=== PATIENT | female | born 1950 | race Caucasian/White ===

== ENCOUNTER 2018-06-22 12:03 | Inpatient (IN) | payer MEDICARE ==
[~2018-06-22] VITALS: Ht 157.5 cm; Wt 71.4 kg
[2018-06-22 15:00] VITALS: BP 141/72
[2018-06-22] MEDS ORDERED: TOPI25TA7 PO (15:56)
[2018-06-22] MEDS ORDERED: ONDA4TAB12 PO (15:56)
[2018-06-22] MEDS ORDERED: LACT1CAP2 PO (15:56)
[2018-06-22] MEDS ORDERED: PANT20TA2 PO (15:56)
[2018-06-22] MEDS ORDERED: ACET500T68 PO (15:56)
[2018-06-22] MEDS ORDERED: ATEN50TA PO (15:56)
[2018-06-22] MEDS ORDERED: levOFLOXacin PER PHARMACY. MC PRN (16:15)
[2018-06-22] MEDS ORDERED: ONDANSETRON ODT 4 MG TAB.RAPDIS. PO PRN (16:15)
[2018-06-22] MEDS: ATENOLOL 50 MG TABLET. PO SCH (16:23)
[2018-06-22] MEDS ORDERED: PANTOPRAZOLE 40 MG TABLET.DR. PO SCH (16:30)
[2018-06-22] MEDS: VANCOMYCIN PER PHARMACY MC PRN ×2 (16:37→20:17)
[2018-06-22] MEDS: IV NORMAL SALINE 1000ML BAG 1,000 ML IV SCH (16:50)
[2018-06-22] MEDS: ACETAMINOPHEN 500 MG TABLET PO PRN ×2 (16:50→21:08)
[2018-06-22] MEDS: VANCOMYCIN 1 GM in IV NORMAL SALINE 250ML 250 ML IV SCH (16:51)
[2018-06-22 19:00] VITALS: BP 130/78
--- NOTE | 2018-06-22 20:18 | NUR ---
Pharmacy Vancomycin Dosing Note S:Consulted to monitor and dose vancomycin started 06/20/18. O:NATY VALENTINE is a 68 year old F with Sepsis . Height: 5 feet, 2 inches Weight: 72.469359 kg [place] Body Weight: 50.10 Adjusted Body Weight: Dosing Weight: Actual Other Antibiotics: LEVAQUIN LABS: Last BUN: Last Creatinine: Creatinine Clearance: mL/min Last WBC: Last Procalcitonin: Tmax (past 24 hours): 97.9 Microbiology: I/O: Drug Levels: Last level: on at Last dose given 06/22/18 at 0406 Vancomycin Dosing: Loading Dose: 1750 mg x1 Dosing Weight: Actual Target Trough: 15-20 A: VANCOMYCIN 1.75GM IV BOLUS GIVEN AT [facility] 06/20, P: 1. Continue Vancomycin 1000 mg IV q12h 2. Follow up Trough level on 06/23/18 at 0400 3. Pharmacy will continue to monitor, follow and adjust therapy as needed. ZAHRAA SOLANO RPH, 06/22/18 2018
[2018-06-22] MEDS: LACTOBACILLUS RHAMNOSUS GG 1 CAPSULE. PO SCH (21:08)
[2018-06-22] MEDS: TOPIRAMATE 25 MG TABLET. PO SCH (21:08)
[2018-06-22] MEDS: PANTOPRAZOLE IV PUSH 40 MG VIAL. IVP SCH (21:08)
[2018-06-22 23:00] VITALS: BP 123/73
[2018-06-23 03:00] VITALS: BP 139/74
[2018-06-23 05:18] LABS: BLOOD UREA NITROGEN 4 mg/dL (7-20); CREATININE 0.6 mg/dL (0.6-1.0); VANC TR 14.5 mcg/mL (10.0-20.0)
[2018-06-23] MEDS: IV NORMAL SALINE 1000ML BAG 1,000 ML IV SCH ×3 (05:20→16:41)
[2018-06-23] MEDS: ACETAMINOPHEN 500 MG TABLET PO PRN (05:23)
[2018-06-23] MEDS: VANCOMYCIN 1 GM in IV NORMAL SALINE 250ML 250 ML IV SCH (05:27)
[2018-06-23] MEDS: VANCOMYCIN PER PHARMACY MC PRN (05:35)
--- NOTE | 2018-06-23 05:35 | NUR ---
Pharmacy Vancomycin Dosing Note S:Consulted to monitor and dose vancomycin started 06/20/18. O:NATY VALENTINE is a 68 year old F with Sepsis . Height: 5 feet, 2 inches Weight: 72.401079 kg [place] Body Weight: 50.10 Adjusted Body Weight: 58.86 Dosing Weight: Actual Other Antibiotics: LEVAQUIN LABS: Last BUN: 4 Last Creatinine: 0.6 Creatinine Clearance: mL/min Last WBC: Last Procalcitonin: Tmax (past 24 hours): 97.9 Microbiology: I/O: Drug Levels: Last Trough level: 14.5 on 06/23/18 at 0400 Last dose given 06/22/18 at 0406 Vancomycin Dosing: Loading Dose: 1750 mg x1 Dosing Weight: Actual Target Trough: 15-20 A: Based on: TROUGH P: 1. Continue Vancomycin 1000 mg IV q12h 2. Follow up Trough level IF NEEDED 3. Pharmacy will continue to monitor, follow and adjust therapy as needed. DES TAYLOR RPH, 06/23/18 0535 Signed: 06/23/18 at 0535 by DES TAYLOR RPH PHA
[2018-06-23 07:00] VITALS: BP 151/78
[2018-06-23] MEDS: LACTOBACILLUS RHAMNOSUS GG 1 CAPSULE. PO SCH ×2 (08:15→20:27)
[2018-06-23] MEDS: PANTOPRAZOLE IV PUSH 40 MG VIAL. IVP SCH ×2 (08:16→20:27)
[2018-06-23] MEDS: ATENOLOL 50 MG TABLET. PO SCH (08:18)
--- NOTE | 2018-06-23 10:17 | PDOC2 ---
GI CONSULT Reason For Consult: Possible stomach ulcer HPI: HPI: 68 y/o female transferred from [facility], was told she would have an EGD this morning. Reports epigastric to RUQ "aching" for more than 1 week, sometimes w/ radiation to back. Constant, worse w/ movement. Associated w/ indigestion and decreased appetite (though hungry this morning). Has some vomiting on Wednesday and Wednesday, none since and tolerating liquid diet. Says was seen at the ER last week for SOA and lightheadedness, was told related to GERD. Saw PCP last week and was given Sucralfate which she took for a couple days - not sure of efficacy. H/o GERD controlled w/ Prilosec QD - occasional breakthrough reflux and belching , but pain is not a typical symptom for her. Rare dysphagia. No hematemesis. No diarrhea, constipation (though hasn't stooled since Wednesday because hasn't been eating), hematochezia, or melena. Assumes weight loss throughout this. EGD and colonoscopy w/ Dr. Rodriguez at [facility] 5 years ago - recalls no significant findings except maybe a colon polyp. Does have h/o "esophageal ulcer" years ago - at that point started PPI (initially Prevacid) and hasn't stopped since. S/p cholecystectomy ("it was really red"). No pancreas or liver history. Until several months ago, took ibuprofen 800mg QD-BID for arthritis pain. Stopped and hasn't restarted any NSAIDs (though says has a script for one). Labs at [facility] include normal Hgb, BUN, LFTs, amylase, and lipase. CTA chest unrevealing. CT A/P w/o contrast was without acute abnormality but noted small hypodense collection of GB fossa which could represent postop hematoma or seroma and also diverticulosis. Barium swallow noted slight increased fatty stranding surrounding the distal gastric antrum, pylorus, and proximal duodenum. PMH: PMH: HTN, GERD, esophageal ulcer, colon polyp cholecystectomy, hysterectomy FH: Family History: Cancer (breast) Social History: Smoke: No ALCOHOL: none ROS: GEN: Denies fevers, chills, sweats HEENT: Denies blurred vision, sore throat CV: Denies chest pain RESP: Denies shortness of air, cough GI: Per HPI : Denies hematuria, dysuria ENDO: Denies weight changes NEURO: +dizziness MSK: +arthritis SKIN: Denies jaundice, pruritus Vitals: Vitals: Vital Signs Date Time Temp Pulse Resp B/P (MAP) Pulse Ox O2 Delivery O2 Flow Rate FiO2 06/23/18 08:18 54 151/75 06/23/18 08:00 Room Air 06/23/18 07:00 97.6 18 98 97.6 Labs: Labs: Laboratory Tests Test 06/23/18 03:55 Blood Urea Nitrogen 4 mg/dL (7-20) Creatinine 0.6 mg/dL (0.6-1.0) Estimated GFR (Cockcroft-Gault) 100.0 Vancomycin Level Trough 14.5 mcg/mL (10.0-20.0) Vancomycin Last Dose Date 06/22/18 Vancomycin Last Dose Time 1600 Allergies: Coded Allergies: Sulfa (Sulfonamide Antibiotics) (Verified Allergy, Intermediate, RASH , ) Medications: Current Medications Medications (Trade) Dose Ordered Sig/Emmanuel Route PRN Reason Start Time Stop Time Status Last Admin Dose Admin Sodium Chloride 1,000 ml @ 125 mls/hr Q8H IV 06/22/18 17:00 06/23/18 05:20 Atenolol (Tenormin) 50 mg DAILY PO 06/22/18 16:30 06/23/18 08:18 Acetaminophen (Tylenol) 1,000 mg PRN Q6HRS PRN PO MILD PAIN / TEMP 06/22/18 16:15 06/23/18 05:23 Lactobacillus Rhamnosus (Culturelle) 1 cap BID PO 06/22/18 21:00 06/23/18 08:15 Topiramate (Topamax) 25 mg QHS PO 06/22/18 21:00 06/22/18 21:08 Vancomycin HCl (Vanco Per Pharmacy) 1 each PRN DAILY PRN MC SEE COMMENTS 06/22/18 16:15 06/23/18 05:35 Vancomycin HCl 1 gm/Sodium Chloride 250 ml @ 250 mls/hr Q12H IV 06/22/18 16:30 06/23/18 05:27 Levofloxacin/ Dextrose 150 ml @ 100 mls/hr Q24H IV 06/22/18 17:30 3/13/19 16:51 Pantoprazole Sodium (PROTONIX VIAL for IV PUSH) 40 mg BID IVP 06/22/18 21:00 06/23/18 08:16 Vancomycin HCl (Vancomycin Trough Level) 1 each 1X ONCE MC 06/23/18 04:00 06/23/18 04:01 DC 06/23/18 04:00 PE: GEN: NAD HEENT: Atraumatic, PERRL LUNGS: CTAB HEART: RRR ABD: NABS, S/ND, vague epigastric discomfort toward RUQ - seems most bothersome under right ribs EXTREMITY: No edema SKIN: No rashes, no jaundice NEURO/PSYCH: A & O 3 A/P: A/P: Upper abd pain, dyspepsia Vomiting - resolved GERD, remote h/o esophageal ulcer, rare dysphagia - reports normal EGD ~5 years ago, on chronic PPI CRC screen, h/o colon polyp - reports last colonoscopy ~5 years ago Diverticulosis S/p cholecystectomy H/o NSAID use - stopped several months ago Abnormal imaging - slight increased fatty stranding surrounding the distal gastric antrum, pylorus, and proximal duodenum, also possible hematoma or seroma in GB fossa -- Reviewed w/ Dr. Gee - proceed w/ EGD this afternoon - called to GI lab and to RN. Remain NPO, continue IV PPI. Not sure why she's on vanco and Levaquin, defer to primary. KAVITA CARREON Jun 23, 2018 10:17
--- NOTE | 2018-06-23 10:43 | HP ---
ADMIT DATE: 06/22/2018 HISTORY OF PRESENT ILLNESS: The patient is a 68-year-old female patient who was transferred from [facility] where she was admitted originally with recurrent bouts of nausea, vomiting, apparently was initially thought she might be septic and was started on IV antibiotic as the lactic acid was slightly elevated. She was extensively investigated. Her lab work initially showed a white cell count of 11,600, hemoglobin 13.8, hematocrit 41, MCV 88 and platelet count of 269,000. Her urinalysis was unremarkable and essentially negative. Her chemistry showed that her serum sodium was 134, potassium 3.7, chloride 102, bicarbonate 21, anion gap of 11, BUN 7, creatinine 0.5, estimated GFR 123 mL per minute. Her glucose was 106, and her first lactic acid was 2.2, second one was down to 1.2 after receiving IV fluid and also IV antibiotic. She apparently was extensively investigated, and she apparently had a CT scan of the abdomen as well as CT angio of the chest. CT scan of the abdomen showed no acute abnormality of the abdomen and pelvis, normal appendix, status post cholecystectomy. There is small hypodense collection in the gallbladder fossa which represent postoperative hematoma or seroma. She has diverticulosis and status post hysterectomy. She did have a CT angio of the chest, which basically showed no filling defects are seen in the central pulmonary arteries to suggest pulmonary emboli. There is calcific plaquing of the thoracic aorta without evidence of aneurysm or dissection. The heart is within normal limits in size. No mediastinal or hilar adenopathy is evident. No pulmonary mass or consolidation is seen. There is no evidence of pleural fluid, and apparently, there was an addendum with correlation is made with a chest CT obtained on the same date and abdomen and pelvis CT scan obtained on the prior day and stated that there is a slight increased fatty stranding surrounding the distal gastric antrum. Pylorus and proximal duodenum on the chest CT when compared to the abdomen and pelvis CT obtained one day prior; however, this is possibly excluded from the field of view. Given history of epigastric pain of uncertain etiology, the possibility of duodenitis or an occult ulcer may be considered. There are no changes in the previously demonstrated 4.5 cm fluid collection within the gallbladder fossa, status post cholecystectomy, and because of this new finding, a decision was made to transfer her to [facility] to consult the gastroenterology team. PAST MEDICAL HISTORY: Significant for hypertension, previous history of esophageal ulcers, gastroesophageal reflux disease and the patient said that she used to take ibuprofen on a daily basis up until about 4 months ago for her arthritis. PAST SURGICAL HISTORY: Significant for total abdominal hysterectomy, bunionectomy, cholecystectomy and has had also a screening colonoscopy 5 years ago. ALLERGIES: SHE IS ALLERGIC TO SULFA DRUGS. MEDICATIONS: She is currently on following medications: She is on atenolol 50 mg once a day, acetaminophen 1000 mg every 6 hours, topiramate 25 mg at bedtime, lactobacillus acidophilus 1 capsule twice a day, ondansetron 4 mg ODT every 8 hours and Protonix 40 mg daily. She is apparently also on vancomycin and levofloxacin for presumed sepsis, although there is no obvious source of infection. FAMILY HISTORY: She has 3 sisters, are older, one of them has diabetes, second one has breast cancer and the third one is healthy. Her father at age of 90 because of complication of diabetes including end-stage renal disease as he refused to go on hemodialysis. Mother is still alive at the age of 92. She is known to have atrial fibrillation, bilateral total knee arthroplasty and thyroidectomy. SOCIAL HISTORY: She is , has 1 daughter. She never smoked, does not drink alcohol. 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 REVIEW OF SYSTEMS: The patient denied any blurring of vision, cataract, glaucoma or macular degeneration. Denied any earache, tinnitus or sensorineural deafness. Denied any nosebleeds, stuffy nose or postnasal drip. Denied any sore throat, sore tongue, toothache, hoarseness of voice or difficulty swallowing. She actually said that she has intentionally lost weight. Did have some nausea and vomiting last Wednesday and Wednesday, but none overnight. Denied any diarrhea or constipation. Denied any hematemesis, melena, hematochezia. Denied any dysuria, frequency or hematuria. Denied any chest pain, shortness of breath, orthopnea, paroxysmal nocturnal dyspnea. Denied any cough, phlegm or hemoptysis. PHYSICAL EXAMINATION: GENERAL: On arrival to the [facility], she looked well and was clearly in no apparent respiratory distress. No pallor, jaundice, cyanosis or thyromegaly. No jugular venous distention. No lower limb edema. VITAL SIGNS: Her heart rate was 56, temperature was 98.3, respiratory rate was 20, blood [id number], oxygen saturation was 98% on room air. HEAD, EYES, EARS, NOSE AND THROAT: Showed normocephalic, atraumatic. NECK: Supple. HEART: Showed normal first and second heart sounds with no gallop, rub or murmur. CHEST: Clear to auscultation. No crepitation or rhonchi. ABDOMEN: Distended, soft, nontender. No guarding or rigidity. No organomegaly. All hernial orifice intact. Bowel sounds normal. NEUROLOGIC: She was awake, alert, responding appropriately. Cranial nerves intact. She moves extremities without difficulty. She ambulates without assistance or assistive devices. LABORATORY DATA: Her lab work as of yesterday, her white cell count is down to 8500, hemoglobin was 13.5, hematocrit 39.5, MCV 88 and platelet count of 257,000. Her chemistry as of yesterday showed that her serum sodium was 134, potassium 3.7, chloride 102, bicarbonate 21, anion gap of 11, BUN 7, creatinine 0.5, estimated GFR was 123 mL per minute. Her glucose 106, lactic acid was 1.2. Serum calcium was 8.5. CK was 70. Troponin was less than 0.017. Her serum triglycerides 140, total cholesterol 195, LDL was 125, VLDL was 28, and HDL cholesterol was 42, the ratio was 4. Her amylase and lipase were 34 and 167. IMPRESSION: In summary, this is a 68-year-old female patient, presented with nausea, vomiting and epigastric and right upper quadrant pain. Initially she has mild lactic acidosis. The CT scan of the chest showed that there is slight increased fatty stranding surrounding the distal gastric antrum, pylorus and proximal duodenum on chest CT, when compared to the abdomen and pelvic CT obtained one day prior. Given history of epigastric pain of uncertain etiology, the possibility of there might have been an occult ulcer may be considered. The patient is admitted to [facility]. She was continued on IV fluid, continue her Protonix as well as IV antibiotics, and we will consult the Gastroenterology. She will be kept n.p.o. from midnight. JUAN JOSE MACEDO MD DR: ROHITH/bertram JOB#: [id number] / [id number]
[2018-06-23 11:14] VITALS: BP 141/82
[2018-06-23] MEDS ORDERED: IV RINGERS,LACTATED 1000ML 1,000 ML IV SCH (13:24)
[2018-06-23] MEDS ORDERED: fentaNYL PF VIAL 100 MCG/2 ML VIAL IV PRN ×2 (13:30)
[2018-06-23] MEDS ORDERED: MIDAZOLAM HCL/PF 2 MG/2 ML VIAL. IV PRN (13:30)
[2018-06-23] MEDS ORDERED: LIDOCAINE 1% PF 2 ML VIAL. ID PRN (13:30)
[2018-06-23] MEDS ORDERED: LIDOCAINE 2% PF 5 ML VIAL. ONE (13:32)
[2018-06-23] MEDS ORDERED: PROPOFOL 20 ML IV ONE (13:32)
--- NOTE | 2018-06-23 13:52 | PDOC4 ---
Operative Note Operative Note EGD Meds propofol per anesthesia Pre-op dx abd pain s/p kailee/abnl Ct scan Post-op dx non-erosive gastritis Plan advance diet GES and colonoscopy as o/p if symptoms persist GILES ROBLEDO MD Jun 23, 2018 13:52
[2018-06-23 15:00] VITALS: BP 143/71
[2018-06-23] MEDS: HYDROcodone/APAP 5/325MG 1 TAB TABLET PO PRN ×2 (15:13→21:46)
--- NOTE | 2018-06-23 15:21 | NUR ---
SW following for discharge planning. Discussed with RN, pt from [facility], with . Pt had an EGD at 1400 today. SW met with pt to discuss SW referral for Advance Directives. Pt requested SW to return in the morning to complete the paperwork. RN notified. SW will continue to follow.
[2018-06-23 19:00] VITALS: BP 117/70
[2018-06-23] MEDS: TOPIRAMATE 25 MG TABLET. PO SCH (20:27)
[2018-06-23 23:00] VITALS: BP 137/71
[2018-06-24] MEDS: IV NORMAL SALINE 1000ML BAG 1,000 ML IV SCH ×4 (02:17→23:02)
[2018-06-24 03:00] VITALS: BP 147/79
[2018-06-24 04:15] LABS: HEMATOCRIT 39.3 % (36.0-47.0); HEMOGLOBIN 12.9 g/dL (12.0-15.5); RED BLOOD COUNT 4.43 x10^6/uL (3.50-5.40); RED CELL DISTRIBUTION WIDTH 13.6 % (11.5-14.5); WHITE BLOOD COUNT 6.7 x10^3/uL (4.0-11.0)
[2018-06-24 04:45] LABS: ALBUMIN 2.6 g/dL (3.4-5.0); ALBUMIN/GLOBULIN RATIO 0.7 (1.0-1.7); CALCIUM 8.6 mg/dL (8.5-10.1); CREATININE 0.5 mg/dL (0.6-1.0); GFR 123.4; POTASSIUM 3.6 mmol/L (3.5-5.1); TOTAL BILIRUBIN 1.3 mg/dL (0.2-1.0); TOTAL PROTEIN 6.2 g/dL (6.4-8.2)
[2018-06-24 07:00] VITALS: BP 149/71
[2018-06-24 07:15] LABS: CREATININE 0.6 mg/dL (0.6-1.0)
[2018-06-24] MEDS: PANTOPRAZOLE IV PUSH 40 MG VIAL. IVP SCH (08:33)
[2018-06-24] MEDS: LACTOBACILLUS RHAMNOSUS GG 1 CAPSULE. PO SCH ×2 (08:33→20:36)
[2018-06-24] MEDS: ATENOLOL 50 MG TABLET. PO SCH (08:33)
[2018-06-24] MEDS: ACETAMINOPHEN 500 MG TABLET PO PRN (08:41)
[2018-06-24 11:00] VITALS: BP 137/64
--- NOTE | 2018-06-24 11:35 | NUR ---
CLEMENCIA following. Discussed with RN. CLEMENCIA met with pt to complete the DPOA for healthcare paperwork. Pt appointed her Estuardo Jarrett and her daughter Jaqueline. CLEMENCIA Ceja notarized the document. Copy placed on chart, original and other copies given to pt. No further SW needs.
--- NOTE | 2018-06-24 12:25 | RAD ---
Abdominal ultrasound, 06/24/2018: HISTORY: Elevated liver enzymes, right upper quadrant pain The gallbladder is surgically absent. The common hepatic duct at the carina hepatis measures 12 mm. No intrahepatic bile duct dilatation or hepatic mass is evident. The visualized portions of the pancreas are unremarkable. The distal common bile duct near the pancreatic head was not visualized. The spleen is of normal size. There is a mildly prominent extrarenal pelvis on the right. No hydronephrosis or renal mass is evident. There is aortic calcific plaquing without evidence of aneurysm. The inferior vena cava is unremarkable. No free fluid is evident in the abdomen. IMPRESSION: 1. Mild prominence of the common hepatic duct is probably secondary to the postcholecystectomy state. An occult distal common bile duct obstructive process is less likely. 2. The abdominal ultrasound is otherwise unremarkable. Electronically signed by: Jimmy Doran MD (06/24/2018 12:22 PM) [facility]
--- NOTE | 2018-06-24 13:25 | PDOC ---
Subjective: Subjective: Worried about liver enzymes, wonder about US results. Tolerating PO - epigastric pain is better, still some discomfort over to right under ribs. Objective: Vital Signs: Vital Signs Date Time Temp Pulse Resp B/P (MAP) Pulse Ox O2 Delivery O2 Flow Rate FiO2 06/24/18 11:00 97.4 56 14 137/64 (88) 96 Room Air 97.4 Labs: Laboratory Tests Test 06/24/18 03:30 White Blood Count 6.7 x10^3/uL Red Blood Count 4.43 x10^6/uL Hemoglobin 12.9 g/dL Hematocrit 39.3 % Mean Corpuscular Volume 89 fL Mean Corpuscular Hemoglobin 29 pg Mean Corpuscular Hemoglobin Concent 33 g/dL Red Cell Distribution Width 13.6 % Platelet Count 258 x10^3/uL Sodium Level 143 mmol/L Potassium Level 3.6 mmol/L Chloride Level 107 mmol/L Carbon Dioxide Level 23 mmol/L Anion Gap 13 Blood Urea Nitrogen 7 mg/dL Creatinine 0.5 mg/dL Estimated GFR (Cockcroft-Gault) 123.4 BUN/Creatinine Ratio 14 Glucose Level 103 mg/dL Calcium Level 8.6 mg/dL Total Bilirubin 1.3 mg/dL Aspartate Amino Transf (AST/SGOT) 327 U/L Alanine Aminotransferase (ALT/SGPT) 288 U/L Alkaline Phosphatase 227 U/L Total Protein 6.2 g/dL Albumin 2.6 g/dL Albumin/Globulin Ratio 0.7 Lipase 174 U/L Imaging: US 06/24 IMPRESSION: 1. Mild prominence of the common hepatic duct is probably secondary to the postcholecystectomy state. An occult distal common bile duct obstructive process is less likely. 2. The abdominal ultrasound is otherwise unremarkable. EGD 06/23 non-erosive gastritis PE: GEN: NAD LUNGS: CTAB HEART: RRR ABD: less epigastric discomfort, more to RUQ under rib NEURO/PSYCH: A & O 3 A/P: Upper abd pain GERD - on PPI, EGD as above Abnormal LFTs - new, US unrevealing s/p kailee -- ?I think LFTs were normal @ [facility] prior to transfer - I cannot view these in [employer] but will review in paper chart again. ?drug effect - was on Levaquin and vanco (unclear why) Unclear etiology of LFTs - will review w/ Dr. Gee. Hepatitis panel already ordered. KAVITA CARREON Jun 24, 2018 13:25
[2018-06-24 15:00] VITALS: BP 126/68
[2018-06-24] MEDS: HYDROcodone/APAP 5/325MG 1 TAB TABLET PO PRN (18:28)
[2018-06-24 19:00] VITALS: BP 148/75
[2018-06-24] MEDS: TOPIRAMATE 25 MG TABLET. PO SCH (20:36)
[2018-06-24] MEDS: MORPHINE SULFATE 2 MG/ML VIAL. IV PRN (21:12)
[2018-06-24 23:00] VITALS: BP 147/78
--- NOTE | 2018-06-24 23:13 | PN ---
DATE: 06/24/2018 SUBJECTIVE: The patient is a 68-year-old female patient who was transferred from [facility], where she was admitted with epigastric and right upper abdominal pain. Her CT scan showed that she might actually have slightly increased fatty stranding surrounding her distal gastric antrum, pylorus and proximal duodenum and therefore, she was transferred to this hospital for a possibility of an occult ulcer. She was in fact seen by the Gastroenterology team, underwent upper GI endoscopy and apparently, she was found to have nonerosive gastritis and her diet was advanced and the slag production worker recommended gastric emptying study and colonoscopy as an outpatient. Her lab work, however, this morning showed that her liver enzymes are dramatically high. I looked back into her lab work done at [facility] and there was unfortunately no labs done there to compare with. Her total bilirubin, AST, ALT and alkaline phosphatase are all elevated and therefore, I ordered ultrasound to be done at around 02:00 this morning. She was on antibiotics in the form of vancomycin and Levaquin, which could potentially cause this hepatitis. I will await the results of ultrasound and decide on further management accordingly. JUAN JOSE MACEDO MD DR: ROHITH/bertram JOB#: [id number] / [id number]
[2018-06-25] MEDS: HYDROcodone/APAP 5/325MG 1 TAB TABLET PO PRN ×4 (00:17→18:04)
[2018-06-25] MEDS: MORPHINE SULFATE 2 MG/ML VIAL. IV PRN ×7 (00:57→20:46)
[2018-06-25 03:00] VITALS: BP 145/78
[2018-06-25 07:00] VITALS: BP 140/79
[2018-06-25] MEDS: IV NORMAL SALINE 1000ML BAG 1,000 ML IV SCH ×3 (07:04→23:34)
[2018-06-25] MEDS: PANTOPRAZOLE 40 MG TABLET.DR. PO SCH (08:32)
[2018-06-25] MEDS: ATENOLOL 50 MG TABLET. PO SCH (08:32)
[2018-06-25] MEDS: LACTOBACILLUS RHAMNOSUS GG 1 CAPSULE. PO SCH ×2 (08:32→20:47)
[2018-06-25 10:43] VITALS: BP 125/74
--- NOTE | 2018-06-25 13:18 | PN ---
DATE: 06/25/2018 SUBJECTIVE: The patient is sitting, slightly propped up in bed, in no apparent distress. She continued to complain of pain in her epigastric and right upper quadrant. Her pain has worsened last night. Her liver enzymes were noted to be elevated yesterday, and she was seen by the remittance clerk who recommended to do an MRCP that would be scheduled for Wednesday. PHYSICAL EXAMINATION: GENERAL: When I saw her today, she looked well and was clearly in no apparent respiratory distress. No pallor, jaundice, cyanosis or thyromegaly. No jugular venous distension. No lower limb edema. VITAL SIGNS: Her heart rate was 69, blood pressure 125/74, temperature was 98.5, respiratory rate was 18 and oxygen saturation was 97%. HEAD, EYES, EARS, NOSE AND THROAT: Showed normocephalic, atraumatic. NECK: Supple. HEART: Showed normal first and second heart sounds. No gallop, rub or murmur. CHEST: Clear to auscultation. No crepitation or rhonchi. ABDOMEN: Distended, soft, nontender. No guarding or rigidity. No organomegaly. All hernial orifice intact. Bowel sounds normal. NEUROLOGIC: She is awake, alert, responding appropriately. All cranial nerves intact. She moves extremities without difficulty. Her intake and output were incompletely recorded. LABORATORY DATA: Today's labs are still pending at the time of this dictation. However, yesterday her total bilirubin, AST, ALT, alkaline phosphatase are all elevated. However, his serum lipase was normal at 174. ASSESSMENT: 1. Epigastric and right upper quadrant abdominal pain. The CT scan done at [facility] showing increased fatty stranding surrounding her distal gastric antrum, pylorus and proximal jejunum 2. Upper gastrointestinal endoscopy showed only nonerosive gastritis. 3. Liver enzymes noted to have dramatically risen, although unfortunately there are no labs done at [facility] to compare with. She was seen yesterday by the remittance clerk and ordered MRCP without contrast. I did order a hepatitis serology and her hepatitis A IgM, hepatitis B surface antigen, hepatitis B core antigen, hepatitis C are all nonreactive. PLAN: To continue with current plan of management, await the MRCP and follow her liver enzyme. JUAN JOSE MACEDO MD DR: ROHITH/bertram JOB#: [id number] / [id number]
[2018-06-25 13:30] LABS: CALCIUM 8.8 mg/dL (8.5-10.1); CREATININE 0.6 mg/dL (0.6-1.0); POTASSIUM 3.5 mmol/L (3.5-5.1)
[2018-06-25 13:36] LABS: ALBUMIN/GLOBULIN RATIO 0.9 (1.0-1.7); TOTAL BILIRUBIN 3.3 mg/dL (0.2-1.0); TOTAL PROTEIN 6.2 g/dL (6.4-8.2)
--- NOTE | 2018-06-25 14:32 | PDOC ---
Subjective: Subjective: epigastric pain controlled on meds Objective: Vital Signs: Vital Signs Date Time Temp Pulse Resp B/P (MAP) Pulse Ox O2 Delivery O2 Flow Rate FiO2 06/25/18 13:01 20 20 Room Air 06/25/18 10:43 98.5 69 125/74 (91) 98.5 Labs: Laboratory Tests Test 06/25/18 12:40 Sodium Level 139 mmol/L (136-145) Potassium Level 3.5 mmol/L (3.5-5.1) Chloride Level 101 mmol/L (98-107) Carbon Dioxide Level 26 mmol/L (21-32) Anion Gap 12 (6-14) Blood Urea Nitrogen 5 mg/dL (7-20) Creatinine 0.6 mg/dL (0.6-1.0) Estimated GFR (Cockcroft-Gault) 100.0 BUN/Creatinine Ratio 8 (6-20) Glucose Level 188 mg/dL (70-99) Calcium Level 8.8 mg/dL (8.5-10.1) Total Bilirubin 3.3 mg/dL (0.2-1.0) Aspartate Amino Transf (AST/SGOT) 194 U/L (15-37) Alanine Aminotransferase (ALT/SGPT) 373 U/L (14-59) Alkaline Phosphatase 388 U/L (46-116) Total Protein 6.2 g/dL (6.4-8.2) Albumin 3.0 g/dL (3.4-5.0) Albumin/Globulin Ratio 0.9 (1.0-1.7) Lipase 152 U/L (73-393) Physical Exam: Physical Exam: PE: GEN: NAD LUNGS: CTAB HEART: RRR ABD: less epigastric discomfort, more to RUQ under rib NEURO/PSYCH: A & O 3 Assessment & Plan: Assessment : A/P: Upper abd pain GERD - on PPI, EGD as above Abnormal LFTs - new, US unrevealing s/p kailee Plan: 1) Hepatitis panel negative 2) Await MRCP wednesday MICHELE JARA MD Jun 25, 2018 14:32
[2018-06-25 14:56] VITALS: BP 134/76
[2018-06-25 19:00] VITALS: BP 138/85
[2018-06-25] MEDS: ACETAMINOPHEN 500 MG TABLET PO PRN (20:46)
[2018-06-25] MEDS: TOPIRAMATE 25 MG TABLET. PO SCH (20:47)
[2018-06-25] MEDS: oxyCODONE IR 5 MG TABLET PO PRN (20:47)
[2018-06-25 23:00] VITALS: BP 125/75
[2018-06-26] MEDS: MORPHINE SULFATE 2 MG/ML VIAL. IV PRN ×4 (02:27→16:15)
[2018-06-26] MEDS: oxyCODONE IR 5 MG TABLET PO PRN ×4 (02:27→18:20)
[2018-06-26 03:00] VITALS: BP 124/70
[2018-06-26 07:00] VITALS: BP 147/84
[2018-06-26] MEDS: PANTOPRAZOLE 40 MG TABLET.DR. PO SCH (08:22)
[2018-06-26] MEDS: LACTOBACILLUS RHAMNOSUS GG 1 CAPSULE. PO SCH ×2 (08:23→20:34)
[2018-06-26] MEDS: ATENOLOL 50 MG TABLET. PO SCH (08:23)
[2018-06-26] MEDS: IV NORMAL SALINE 1000ML BAG 1,000 ML IV SCH ×2 (08:24→18:09)
[2018-06-26] MEDS ORDERED: fentaNYL PF VIAL 100 MCG/2 ML VIAL IV PRN (10:30)
[2018-06-26 10:47] VITALS: BP 130/78
[2018-06-26 12:34] LABS: ALBUMIN 2.6 g/dL (3.4-5.0); TOTAL BILIRUBIN 5.7 mg/dL (0.2-1.0); TOTAL PROTEIN 6.6 g/dL (6.4-8.2)
[2018-06-26 14:35] VITALS: BP 128/72
--- NOTE | 2018-06-26 14:46 | PDOC ---
Subjective: Subjective: T bili up to 5.7. She denies rash but admits to fever overnight but no abd pain Objective: Vital Signs: Vital Signs Date Time Temp Pulse Resp B/P (MAP) Pulse Ox O2 Delivery O2 Flow Rate FiO2 06/26/18 14:35 97.7 74 18 128/72 (90) 95 Room Air 97.7 Labs: Laboratory Tests Test 06/26/18 11:30 Total Bilirubin 5.7 mg/dL (0.2-1.0) Direct Bilirubin 5.0 mg/dL (0.0-0.2) Aspartate Amino Transf (AST/SGOT) 61 U/L (15-37) Alanine Aminotransferase (ALT/SGPT) 235 U/L (14-59) Alkaline Phosphatase 384 U/L (46-116) Total Protein 6.6 g/dL (6.4-8.2) Albumin 2.6 g/dL (3.4-5.0) Physical Exam: Physical Exam: GEN: Jaundice HEENT: OP clear CV: S1S2 without murmurs, rubs, or gallops RESP: CTAB without wheezing, rhonchi, or crackles ABD: NABS, SNT/ND EXT: No edema NEURO: AAO x 3 Assessment & Plan: Assessment : A/P: Upper abd pain GERD - on PPI, EGD as above Abnormal LFTs - new, US unrevealing s/p kailee Plan: 1) Hepatitis panel negative 2) T bili up to 5.7 3) Await MRCP wednesday MICHELE JARA MD Jun 26, 2018 14:46
[2018-06-26 19:00] VITALS: BP 165/78
[2018-06-26] MEDS: TOPIRAMATE 25 MG TABLET. PO SCH (20:34)
[2018-06-26] MEDS: MORPHINE SULFATE 4 MG/ML VIAL. IV PRN (20:34)
--- NOTE | 2018-06-26 20:57 | PN ---
DATE: 06/26/2018 SUBJECTIVE: The patient is 68 years old female. Patient who was transferred from [facility] because of nausea, vomiting. She underwent upper GI endoscopy that was unrevealing; however, her liver enzymes started to rise. In fact, yesterday, her bilirubin, AST, ALT, alkaline phosphatase all had risen, although her serum lipase remained normal. Her ultrasound was unremarkable and again was unrevealing showing that she has mild prominence of the common hepatic duct, probably secondary to post-cholecystectomy state. An occult distal common bile duct obstructive process is less likely. The abdominal ultrasound was otherwise unremarkable. She was scheduled for MRCP for tomorrow morning. Unfortunately, she continued to complain of severe pain in her epigastric and right upper quadrant. PHYSICAL EXAMINATION: GENERAL: When I examined her today, she looked well, slightly jaundiced, but not cyanosis. No lymphadenopathy, no thyromegaly. No jugular venous distension. No lower limb edema. VITAL SIGNS: Her heart rate was 68, blood pressure was 147/84, temperature was 98.2, respiratory rate was 18 and oxygen saturation was 96%. HEAD, EYES, EARS, NOSE AND THROAT: Normocephalic, atraumatic. NECK: Supple. HEART: Showed normal first and second heart sounds. No gallop, rub or murmur. CHEST: Clear to auscultation. No crepitation or rhonchi. ABDOMEN: Distended, soft with tenderness mostly in the epigastric and right upper quadrant. There is no guarding or rigidity. No organomegaly. All hernial orifices intact. Bowel sounds normal. NEUROLOGIC: She was awake, alert, responding appropriately. All cranial nerves intact. She moves extremities without difficulty. She ambulates without assistance or assistive devices. LABORATORY DATA: As of yesterday, her serum sodium was 139, potassium 3.5, chloride 101, bicarbonate 26, anion gap of 12, BUN 5, creatinine 0.6, estimated GFR was 100. Her glucose was 188, calcium was 8.8. Total bilirubin 3.3. AST and ALT, alkaline phosphatase are all high and rising. Her total protein was 6.2, albumin 3 and serum lipase was 152. ASSESSMENT: Upper abdominal pain for which she underwent upper GI endoscopy that was unrevealing. She has abnormal liver enzymes. The ultrasound was unrevealing. Her hepatitis serology was negative. The patient is scheduled for MRCP tomorrow as her pain is still not well controlled. I increased her morphine to 4 mg IV every 3 hours and if that is not controlling her pain, we might have to switch her to fentanyl in case morphine worsens the pain. JUAN JOSE MACEDO MD DR: ROHITH/bertram JOB#: [id number] / [id number]
[2018-06-26 23:00] VITALS: BP 136/75
[2018-06-27] MEDS: oxyCODONE IR 5 MG TABLET PO PRN ×4 (00:13→21:15)
[2018-06-27] MEDS: diphenhydrAMINE HCL 25 MG CAPSULE PO PRN ×2 (00:13→08:01)
[2018-06-27] MEDS: IV NORMAL SALINE 1000ML BAG 1,000 ML IV SCH ×3 (00:14→17:20)
[2018-06-27 03:00] VITALS: BP 131/69
[2018-06-27] MEDS: MORPHINE SULFATE 4 MG/ML VIAL. IV PRN ×2 (05:36→17:21)
[2018-06-27 07:00] VITALS: BP 163/83
--- NOTE | 2018-06-27 10:21 | PDOC ---
Objective: Vital Signs: Vital Signs Date Time Temp Pulse Resp B/P (MAP) Pulse Ox O2 Delivery O2 Flow Rate FiO2 06/27/18 08:02 Room Air 06/27/18 07:00 98.4 64 16 163/83 (109) 98 98.4 Labs: Laboratory Tests Test 06/26/18 11:30 Total Bilirubin 5.7 mg/dL Direct Bilirubin 5.0 mg/dL Aspartate Amino Transf (AST/SGOT) 61 U/L Alanine Aminotransferase (ALT/SGPT) 235 U/L Alkaline Phosphatase 384 U/L Total Protein 6.6 g/dL Albumin 2.6 g/dL PE: out of room A/P: Upper abd pain - h/o GERD, EGD unrevealing Abnormal LFTs - bili worse (checked 06/26), Hep panel neg, past EBV and CMV -- Await MRCP, monitor labs. Called by RN earlier - asking for diet, gave okay to eat. MRCP results: FINDINGS: Heart is normal in size. No pericardial or pleural effusion. No imaging evidence of hepatic steatosis. The liver is normal in morphology. No abnormal T2 signal is seen. Diffusely dilated intra and extrahepatic biliary ducts are seen. The right and left hepatic ducts, common hepatic duct are patent. Prominent cystic duct remnant is seen. Low attachment of cystic duct is seen. The CBD is dilated measuring 1.4 cm with a round low intensity object/lesion within the CBD just before the ampulla. The main pancreatic duct is not dilated. No pancreatic or peripancreatic edema. Spleen is unenlarged. Adrenal glands demonstrate no nodularity. No hydronephrosis. Status post cholecystectomy. No bowel obstruction. IMPRESSION: Dilated intra and extrahepatic biliary ducts with internal filling defect in the distal segment of the CBD most likely a stone. Further evaluation with ERCP recommended. D/w RN again. Would assume ERCP tomorrow but will review w/ Dr. Gee and put in orders accordingly. Will also return to pt's room later to discuss. KAVITA CARREON Jun 27, 2018 10:21
[2018-06-27] MEDS: PANTOPRAZOLE 40 MG TABLET.DR. PO SCH (10:52)
[2018-06-27] MEDS: LACTOBACILLUS RHAMNOSUS GG 1 CAPSULE. PO SCH ×2 (10:53→21:11)
[2018-06-27] MEDS: ATENOLOL 50 MG TABLET. PO SCH (10:53)
[2018-06-27 11:01] VITALS: BP 140/87
--- NOTE | 2018-06-27 11:10 | RAD ---
Indication: abnormal pain. History of cholecystectomy. TECHNIQUE: Multiplanar multisequence MRI and MRCP of the abdomen without IV contrast with MIP reformats. COMPARISON: Ultrasound from 06/24/2018 FINDINGS: Heart is normal in size. No pericardial or pleural effusion. No imaging evidence of hepatic steatosis. The liver is normal in morphology. No abnormal T2 signal is seen. Diffusely dilated intra and extrahepatic biliary ducts are seen. The right and left hepatic ducts, common hepatic duct are patent. Prominent cystic duct remnant is seen. Low attachment of cystic duct is seen. The CBD is dilated measuring 1.4 cm with a round low intensity object/lesion within the CBD just before the ampulla. The main pancreatic duct is not dilated. No pancreatic or peripancreatic edema. Spleen is unenlarged. Adrenal glands demonstrate no nodularity. No hydronephrosis. Status post cholecystectomy. No bowel obstruction. IMPRESSION: Dilated intra and extrahepatic biliary ducts with internal filling defect in the distal segment of the CBD most likely a stone. Further evaluation with ERCP recommended. Electronically signed by: Cooper Lee DO (06/27/2018 11:08 AM) [facility]
[2018-06-27 15:00] VITALS: BP 156/82
[2018-06-27] MEDS ORDERED: BISACODYL 5 MG TABLET.DR. PO ONE (16:00)
[2018-06-27 19:00] VITALS: BP 154/78
[2018-06-27] MEDS: TOPIRAMATE 25 MG TABLET. PO SCH (21:11)
[2018-06-27] MEDS: POLYETHYLENE GLYCOL 3350 17 GM PACKET. PO SCH (21:11)
--- NOTE | 2018-06-27 21:23 | PN ---
DATE: 06/27/2018 SUBJECTIVE: The patient is resting slightly propped up in bed, in no apparent distress. She continued to complain of pain in her epigastric and right upper quadrant and she is scheduled for MRCP to be done this morning. PHYSICAL EXAMINATION: GENERAL: When I was examining her, she looked well and was clearly in no apparent respiratory distress. No pallor. She is jaundiced, but not cyanosed. No lymphadenopathy, no thyromegaly. No jugular venous distension. No lower limb edema. VITAL SIGNS: Her heart rate was 64, blood pressure 163/83, temperature was 98.4, respiratory rate was 16, and oxygen saturation was 98% on room air. The rest of examination is stable. Her intake was 1214, no output was recorded. LABORATORY DATA: As of yesterday, her bilirubin has risen actually up from 1.3-5.7. This is mostly direct bilirubin getting obstruction. Her alkaline phosphatase, AST, ALT continue to rise. ASSESSMENT: Cholestatic jaundice. Her hepatitis panel was negative. The upper GI endoscopy showed gastroesophageal reflux disease. Her abdominal ultrasound was unrevealing. PLAN: To await the result of the MRCP to decide on further management. JUAN JOSE MACEDO MD DR: ROHITH/bertram JOB#: [id number] / [id number]
[2018-06-27 23:00] VITALS: BP 144/75
[2018-06-28] VITALS (10 sets, daily range): BP systolic 109–147; BP diastolic 61–81
[2018-06-28] MEDS: MORPHINE SULFATE 4 MG/ML VIAL. IV PRN (00:17)
[2018-06-28 05:20] LABS: HEMATOCRIT 35.5 % (36.0-47.0); HEMOGLOBIN 11.9 g/dL (12.0-15.5); RED BLOOD COUNT 3.99 x10^6/uL (3.50-5.40); RED CELL DISTRIBUTION WIDTH 14.7 % (11.5-14.5); WHITE BLOOD COUNT 6.2 x10^3/uL (4.0-11.0)
[2018-06-28] MEDS: IV NORMAL SALINE 1000ML BAG 1,000 ML IV SCH ×3 (05:24→17:52)
[2018-06-28] MEDS: oxyCODONE IR 5 MG TABLET PO PRN ×2 (06:19→10:21)
[2018-06-28] MEDS ORDERED: IV RINGERS,LACTATED 1000ML 1,000 ML IV SCH (07:00)
[2018-06-28] MEDS: PANTOPRAZOLE 40 MG TABLET.DR. PO SCH (07:30)
[2018-06-28 07:54] LABS: ALBUMIN 2.1 g/dL (3.4-5.0); ALBUMIN/GLOBULIN RATIO 0.6 (1.0-1.7); CALCIUM 8.9 mg/dL (8.5-10.1); CREATININE 0.5 mg/dL (0.6-1.0); GFR 123.4; POTASSIUM 4.5 mmol/L (3.5-5.1); TOTAL BILIRUBIN 5.2 mg/dL (0.2-1.0); TOTAL PROTEIN 5.9 g/dL (6.4-8.2)
[2018-06-28] MEDS: POLYETHYLENE GLYCOL 3350 17 GM PACKET. PO SCH ×2 (07:56→21:00)
[2018-06-28] MEDS: ATENOLOL 50 MG TABLET. PO SCH (08:00)
[2018-06-28] MEDS: LACTOBACILLUS RHAMNOSUS GG 1 CAPSULE. PO SCH ×2 (08:00→21:13)
[2018-06-28] MEDS ORDERED: IOHEXOL 300 MG/ML 100ML VIAL. ONE (08:17)
[2018-06-28] MEDS: PIPERACILLIN/TAZOBACTAM 3.375 GM in IV NORMAL SALINE 50ML 50 ML IV SCH ×3 (09:59→23:54)
--- NOTE | 2018-06-28 10:23 | PN ---
DATE: 06/28/2018 SUBJECTIVE: The patient is resting, slightly propped up in bed, in no apparent respiratory distress. She is awake, alert, stated that she did sleep. Her MRCP showed that the patient has dilated intra and extrahepatic biliary ductal internal filling defect in the distal segment of the common bile duct, most likely a stone. Further evaluation with ERCP is recommended. Actually she was kept n.p.o. from midnight last night, and she is scheduled for ERCP today. OBJECTIVE: GENERAL: When I saw her this morning, she looked well and was clearly in no apparent respiratory distress. No pallor, jaundice, cyanosis or thyromegaly. No jugular venous distension. No lower limb edema. VITAL SIGNS: Her heart rate was 75, blood pressure 147/81, temperature was 98.7, respiratory rate was 18 and oxygen saturation was 96% on room air. HEAD, EYES, EARS, NOSE AND THROAT: Showed normocephalic, atraumatic. NECK: Supple. HEART: Showed normal first and second heart sounds with no gallop, rub or murmur. CHEST: Clear to auscultation. No crepitation or rhonchi. ABDOMEN: Distended, soft, nontender. No guarding or rigidity. No organomegaly. All hernial orifice intact. Bowel sounds normal. NEUROLOGIC: She was awake, alert, responding appropriately. All cranial nerves are intact. She moves extremities without difficulty. She ambulates without assistance or assistive devices. Her intake over the last 24 hours was 3400, no output recorded. LABORATORY DATA: Her lab work this morning showed a white cell count of 6200, hemoglobin at 12, hematocrit 36, MCV 89 and platelet count of 293,000. Her chemistry showed a serum sodium 141, potassium 4.5, chloride 103, bicarbonate 29, anion gap of 9, BUN 6, creatinine 0.5, estimated GFR was 123 mL per minute. Her glucose 111, calcium was 8.9. Total bilirubin is 5.2. AST normal. ALT and alkaline phosphatase slightly elevated. Total protein was 5.9, albumin 2.1. So far, all her blood cultures are negative. ASSESSMENT: Upper abdominal pain with abnormal liver enzymes with worsening hyperbilirubinemia. Her hepatic panel was negative. MRCP showed that she has dilated intra and extrahepatic biliary ductal internal filling defect in the distal segment of the common bile duct, most likely a stone. The patient is scheduled for ERCP today. JUAN JOSE MACEDO MD DR: ROHITH/bertram JOB#: [id number] / [id number]
--- NOTE | 2018-06-28 12:14 | NUR ---
SW following. Discussed with RN, pt having an ERCP today. RN advised no SW needs at this time. SW will continue to follow.
[2018-06-28] MEDS ORDERED: SUCCINYLCHOLINE 200 MG/10 ML VIAL. ONE (15:11)
[2018-06-28] MEDS ORDERED: IOHEXOL 350 MG/ML 100 ML VIAL. IV ONE (15:56)
--- NOTE | 2018-06-28 16:04 | PDOC4 ---
Operative Note Operative Note ERCP with sphincterotomy/stone extraction Meds per anesthesia pre-op dx jaundice/abnl MRCp post-op dx choledocholithiasis s/p sphincterotomy/stone extraction Plan liquids over night amylase/lipase/LFTS in am to assess for pancreatitis GILES ROBLEDO MD Jun 28, 2018 16:04
--- NOTE | 2018-06-28 16:26 | RAD ---
Intraoperative fluoroscopic support 06/28/2018 INDICATION: ERCP Discussion: Intraoperative fluoroscopic support was provided during ERCP. 9 static images were submitted to PACS. Diffuse dilatation of the biliary tree is appears to be present. Dilatation of the cystic duct stump is also noted. Filling defects noted in the distal bile duct on final image could represent gas bubbles, or stones. Refer to operative notes for intraoperative findings and procedural details. Fluoroscopy time: 3 minutes, 54 seconds Exposures: 9 IMPRESSION: Intraoperative fluoroscopic support was provided. Electronically signed by: Detsin Blake MD (06/28/2018 4:23 PM) [id number]
[2018-06-28] MEDS: TOPIRAMATE 25 MG TABLET. PO SCH (21:13)
[2018-06-29] MEDS: IV NORMAL SALINE 1000ML BAG 1,000 ML IV SCH ×2 (02:57→08:24)
[2018-06-29 03:00] VITALS: BP 124/64
[2018-06-29 04:25] LABS: HEMATOCRIT 34.8 % (36.0-47.0); HEMOGLOBIN 11.5 g/dL (12.0-15.5); RED BLOOD COUNT 3.9 x10^6/uL (3.50-5.40); RED CELL DISTRIBUTION WIDTH 14.6 % (11.5-14.5); WHITE BLOOD COUNT 4.1 x10^3/uL (4.0-11.0)
[2018-06-29 04:50] LABS: ALBUMIN 2.2 g/dL (3.4-5.0); ALBUMIN/GLOBULIN RATIO 0.6 (1.0-1.7); CALCIUM 8.8 mg/dL (8.5-10.1); CREATININE 0.5 mg/dL (0.6-1.0); GFR 123.4; TOTAL BILIRUBIN 5.4 mg/dL (0.2-1.0); TOTAL PROTEIN 5.8 g/dL (6.4-8.2)
[2018-06-29] MEDS: PIPERACILLIN/TAZOBACTAM 3.375 GM in IV NORMAL SALINE 50ML 50 ML IV SCH ×2 (06:06→11:42)
[2018-06-29 07:00] VITALS: BP 137/76
[2018-06-29] MEDS: LACTOBACILLUS RHAMNOSUS GG 1 CAPSULE. PO SCH (08:22)
[2018-06-29] MEDS: ATENOLOL 50 MG TABLET. PO SCH (08:23)
[2018-06-29] MEDS: PANTOPRAZOLE 40 MG TABLET.DR. PO SCH (08:23)
[2018-06-29] MEDS: POLYETHYLENE GLYCOL 3350 17 GM PACKET. PO SCH (08:24)
--- NOTE | 2018-06-29 09:50 | NUR ---
SW following. Discussed with RN, possibility of pt discharging home with today. No SW needs.
--- NOTE | 2018-06-29 10:53 | PDOC ---
Subjective: Subjective: Feels so much better, no abd pain. Hungry - wants to eat and go home. Stooled - didn't need Miralax today. Objective: Vital Signs: Vital Signs Date Time Temp Pulse Resp B/P (MAP) Pulse Ox O2 Delivery O2 Flow Rate FiO2 06/29/18 08:23 80 137/76 06/29/18 08:00 Room Air 06/29/18 07:00 98.1 17 98 98.1 Labs: Laboratory Tests Test 06/29/18 03:15 White Blood Count 4.1 x10^3/uL Red Blood Count 3.90 x10^6/uL Hemoglobin 11.5 g/dL Hematocrit 34.8 % Mean Corpuscular Volume 89 fL Mean Corpuscular Hemoglobin 30 pg Mean Corpuscular Hemoglobin Concent 33 g/dL Red Cell Distribution Width 14.6 % Platelet Count 311 x10^3/uL Sodium Level 143 mmol/L Potassium Level 3.0 mmol/L Chloride Level 104 mmol/L Carbon Dioxide Level 25 mmol/L Anion Gap 14 Blood Urea Nitrogen 7 mg/dL Creatinine 0.5 mg/dL Estimated GFR (Cockcroft-Gault) 123.4 BUN/Creatinine Ratio 14 Glucose Level 126 mg/dL Calcium Level 8.8 mg/dL Total Bilirubin 5.4 mg/dL Aspartate Amino Transf (AST/SGOT) 38 U/L Alanine Aminotransferase (ALT/SGPT) 98 U/L Alkaline Phosphatase 336 U/L Total Protein 5.8 g/dL Albumin 2.2 g/dL Albumin/Globulin Ratio 0.6 Amylase Level 22 U/L Lipase 92 U/L PE: GEN: NAD LUNGS: CTAB HEART: RRR ABD: NABS, S/ND/NT NEURO/PSYCH: A & O 3 A/P: Choledocholithiasis s/p ERCP w/ sphincterotomy and stone extraction Abd pain - resolved Elevated LFTs -- Reviewed w/ Dr. Gee - okay to ADAT and DC if tolerated. Recheck LFTs w/ PCP next week. KAVITA CARREON Jun 29, 2018 10:53
[2018-06-29 11:00] VITALS: BP 124/78
[2018-06-29] MEDS ORDERED: POTASSIUM CHLORIDE 20 MEQ TABLET.ER. PO SCH (11:30)
[2018-06-29] MEDS: POTASSIUM CHLORIDE 20 MEQ TABLET.ER. PO SCH ×2 (11:42→13:16)
--- NOTE | 2018-06-29 12:08 | DS ---
DATE OF DISCHARGE: 06/29/2018 HOSPITAL COURSE: The patient is a 68-year-old female patient who was transferred from [facility] with epigastric and right upper quadrant pain. There, she has had a CT scan of the abdomen and pelvis, which basically showed that there is slight increased fatty stranding surrounding the distal gastric antrum, pylorus and proximal duodenum with a chest CT when compared to the abdomen and pelvis and therefore possibility of a gastric ulcer is entertained, and therefore the patient was admitted to [facility]. She underwent upper GI endoscopy, which basically showed that she has nonerosive gastritis. Unfortunately, she has not had any liver enzymes tested at [facility]; however, her liver enzyme was noted to be high and she had had an MRCP done, which basically showed that the patient has dilated intra and extrahepatic bile ducts with internal filling defect in the distal segment of the common bile duct, most likely a stone. She underwent ERCP with sphincterotomy and stone retrieval. When I saw her today, she looked well and was clearly in no apparent respiratory distress. She denied any abdominal pain. Denied any nausea, vomiting. She was started on a clear liquid diet and is tolerating it very well. A decision was made to discharge her home to follow with her primary care physician to monitor her lab work. PHYSICAL EXAMINATION: GENERAL: When I saw her, she looked well and was clearly in no apparent respiratory distress. No pallor, jaundice, cyanosis, or thyromegaly. No jugular venous distension. No lymphedema. VITAL SIGNS: Her heart rate was 69, blood pressure 124/76, temperature was 98.1, respiratory rate was 16, and oxygen saturation was 96%. HEAD, EYES, EARS, NOSE AND THROAT: Showed normocephalic, atraumatic. NECK: Supple. HEART: Showed normal first and second heart sounds. No gallop, rub or murmur. CHEST: Clear to auscultation. No crepitation or rhonchi. ABDOMEN: Distended, soft, nontender. No guarding or rigidity. No organomegaly. All hernial orifices intact. Bowel sounds normal. NEUROLOGIC: She is awake, alert, responding appropriately. All cranial nerves intact. She moves extremities without difficulty. She ambulates without assistance or assistive devices. LABORATORY DATA: Showed a white cell count 4100, hemoglobin 11.5, hematocrit 35, MCV 89 and platelet count of 311,000. Her chemistry showed a serum sodium 143, potassium 3, chloride 104, bicarbonate 25, anion gap of 14, BUN 7, creatinine 0.5, estimated GFR was 123 mL per minute. Her glucose was 126, calcium was 8.8, bilirubin 5.4, AST is normal, ALT is 96, trending down; alkaline phosphatase still a little bit elevated at 336. Total protein was 5.8, albumin 2.2. Her amylase and lipase were normal. DISCHARGE MEDICATIONS: She was discharged home to continue on following medications: Acetaminophen 1000 mg every 6 hours, atenolol 50 mg daily, lactobacillus acidophilus 1 twice a day, ondansetron 4 mg every 8 hours, Protonix 40 mg once a day, and topiramate 25 mg at bedtime. FINAL DISCHARGE DIAGNOSES: Cholestatic jaundice with an abnormal magnetic resonance cholangiopancreatography for which the patient underwent endoscopic retrograde cholangiopancreatography, status post sphincterotomy and stone extraction. Other medical problems include hypertension, gastroesophageal reflux disease, esophageal ulcer. JUAN JOSE MACEDO MD DR: ROHITH/bertram JOB#: [id number] / [id number]
== END 2018-06-29 14:13 | disposition home or self-care (01) | DRG 444 ==
LOC: 5 SOUTH 14:45
PROVIDERS: ADMIT Internal Medicine; ATTEND Internal Medicine
PROC: 0DJ08ZZ Inspection of Upper Intestinal Tract, Via Natural or Artificial Opening Endoscopic (ICD-10-PCS; 2018-06-23)
PROC: 0FC98ZZ Extirpation of Matter from Common Bile Duct, Via Natural or Artificial Opening Endoscopic (ICD-10-PCS; principal; 2018-06-28 15:00)
DX: K80.50 Calculus of bile duct without cholangitis or cholecystitis without obstruction (principal); E43 Unspecified severe protein-calorie malnutrition; E87.2 Acidosis; R17 Unspecified jaundice; K22.10 Ulcer of esophagus without bleeding; K29.70 Gastritis, unspecified, without bleeding; K57.90 Diverticulosis of intestine, part unspecified, without perforation or abscess without bleeding; K21.9 Gastro-esophageal reflux disease without esophagitis; R74.8 Abnormal levels of other serum enzymes; I10 Essential (primary) hypertension; M19.90 Unspecified osteoarthritis, unspecified site; Z88.2 Allergy status to sulfonamides; Z80.3 Family history of malignant neoplasm of breast; Z90.710 Acquired absence of both cervix and uterus; Z90.49 Acquired absence of other specified parts of digestive tract; Z87.19 Personal history of other diseases of the digestive system; Z83.3 Family history of diabetes mellitus
CPT/HCPCS: 36415; 43235; 43262; 43264; 74181; 74330; 76700; 80053; 80076; 80202; 82150; 82565; 83690; 84520; 85027; 86644; 86645; 86663; 86664; 86705; 86709; 86803; 87040; 87340; C1726; C1757; C9113; J0330; J1956; J2001; J2270; J2543; J2704; J3370; J7030; J7050; J7120; Q0163; Q9967

== ENCOUNTER → 2020-10-31 | Outpatient (CLI) | payer MEDICARE ==
[~2020-10-31] MED LIST: ACET500T68 PO; ATEN50TA PO; CALC500T30 PO; IOHEXOL 180 MG/ML 10 ML VIAL. ONE; LACT1CAP2 PO; LEVO5TAB29 PO; MELO7.5T29 PO; MULT-445 PO; OMEP20CA16 PO; ONDA4TAB12 PO; PANT20TA2 PO; TOPI25TA7 PO; methylPREDNISolone ACETATE 40 MG/ML VIAL. ONE; methylPREDNISolone ACETATE 80 MG/ML VIAL. ONE
--- NOTE | 2020-10-31 12:50 | PDOC1 ---
INITIAL PAIN CONSULT DATE OF SERVICE: DOS: DATE: 10/31/20 TIME: 12:45 CHIEF COMPLAINT: Chief Complaint: Low back and right lower extremity pain HISTORY OF PRESENT ILLNESS: 70-year-old female presents with history of pain in the low back and right lower extremity for about 1 month increasing without the result of any specific injury patient reports is getting worse with walking standing changing position spec ially getting up from seated position standing for more than 15 to 20 minutes also sitting for longer than 15 to 20 minutes with pain low back rating the right lower extremity posterior gluteus and posterior thigh patient reports that sharp and shooting in the back intermittent intensity cramping and aching the back as well as shooting and sharp and radiating to the right lower extremity patient reports it generally is better with laying down does not awaken her from sleep at night side effect of bowel bladder control or ability to walk patient reports she is been taking hydrocodone as well as doing some stretching and strengthening exercises on her own which help but are not decreasing the pain significantly hydrocodone does decrease it by about 50%. Patient rates her disability rating 0-10 10 being the worst is a 6 with family home responsibilities occupation 7 with recreation social activity 5 with sexual behavior 0 self-care life support activities. Patient have an MRI scan of the lumbar spine showing L4-5 mild bulging annulus with thickening of ligamentum flavum L5-S1 so small left central disc protrusion extending 0.3 cm posteriorly without associated small annular fissure and moderate hypertrophic changes and mild foraminal narrowing. Patient reports a loss of motor function with significant fatigability the right lower extremity with activity. No bowel or bladder incontinence. PAST MEDICAL HISTORY: PMH: Retention, arthritis, osteoporosis, tinnitus PREVIOUS SURGERIES: Past Surgical Hx: ERCP, cholecystectomy, partial hysterectomy, bunionectomy CURRENT MEDICATIONS: Current Meds: Active Scripts Medications Dose Route/Sig Max Daily Dose Days Date Category Multivitamins (Multivitamin) 1 Each Tablet 1 Tab PO DAILY 10/31/20 Reported Calcium (Calcium Carbonate) 500 Mg Tablet 1 Tab PO BID 30 10/31/20 Reported Xyzal (Levocetirizine Dihydrochloride) 5 Mg Tablet 1 Tab PO DAILY 30 10/31/20 Reported Meloxicam 7.5 Mg Tablet 1 Tab PO DAILY 30 10/31/20 Reported Omeprazole 20 Mg Capsule.dr 1 Cap PO DAILY 10/31/20 Reported Topiramate 25 Mg Tablet 25 Mg PO HS 06/22/18 Reported Atenolol 50 Mg Tablet 1 Tab PO DAILY 06/22/18 Reported Acetaminophen 500 Mg Tablet 2 Tab PO PRN Q6HRS PRN 06/22/18 Reported ALLERGIES; Allergies: Coded Allergies: Sulfa (Sulfonamide Antibiotics) (Verified Allergy, Intermediate, RASH , ) FAMILY HISTORY: Family Hx: Colon cancer, breast cancer SOCIAL HISTORY: Social Hx: Patient is under alcohol does not smoke or use any illegal illicit recreational drugs is lives with her spouse is retired and lives locally in [facility] REVIEW OF SYSTEMS: ROS: Positive for those items mentioned in history of present illness, all systems are reviewed, otherwise negative ,and are complete full and well-documented on patient's chart. PHYSICAL EXAM: VS: Blood pressure is 122/76 pulse 78 respirations 16 temperature 98.5 F height is 5 feet 2 inches weight is 173 pounds PE: PHYSICAL EXAMINATION: GENERAL: The patient is awake, alert, oriented, appropriate, very pleasant in demeanor. HEENT: Shows normocephalic, atraumatic. Extraocular movements are intact and symmetrical. Oral cavity: Mucous membranes moist and pink. NECK: Shows anterior throat supple without palpable lymphadenopathy noted. Swallow reflex symmetrical. CHEST: Shows normal on inspection. Breath sounds are clear bilaterally, no rales rhonchi wheezes auscultated. HEART: Shows S1, S2 clear. No murmurs auscultated. ABDOMEN: Soft, nontender, nondistended, obese. No palpable organomegaly is noted. No rebound or guarding demonstrated. BACK: Shows spine grossly in the midline. Normal-appearing cervical lordotic curvature. There is slightly increased thoracic kyphosis, some minor flattening of the lumbar lordotic curvature. Lumbar paraspinous muscles show symmetrical on inspection, on palpation shows some moderate tenderness diffusely throughout the upper, middle and lower distribution of the paraspinous muscles bilaterally and also into the lower thoracic paraspinous musculature, firm and tender, but without specific trigger points, without radiation of pain. The patient has good rotational motion of the lumbar spine, both laterally as well as extension and flexion without significant difficulty. No tenderness over the spinous processes, sacrum or sacroiliac regions. EXTREMITIES: Lower extremities show deep tendon reflexes 2+ in the patellar and tendo calcaneus tendons. Motor exam is 4 on a scale of 5 with right dorsiflexion, extension, quadriceps and hamstring flexion and 5/5 on the left. Peripheral pulses are 1 posterior tibial. No peripheral edema is noted bilaterally. Lower extremities are warm and dry to touch, equal in color and appearance. Straight leg raise noted to be negative bilaterally. Gaenslen's and Luis Manuel's maneuvers are negative bilaterally as well. The patient is able to stand, stand her toes without significant difficulty or loss of balance, walks with a normal-appearing gait does not appear to favor the right or left lower extremity significantly, not use any assistive devices to ambulate. SKIN: Shows warm and dry, good turgor. No edema. No sores, rashes or bruising throughout. IMPRESSION: Impression: 70-year-old female with 1 month history increasing pain low back right lower extremity radicular fashion. MRI scan lumbar spine as noted Arthritis Osteoarthritis Hypertension Plan: Options were discussed with the patient including conservative medical management physical therapy interventional techniques. Patient like to pursue injection techniques. We discussed a lumbar epidural steroid injection using description as well as anatomical models described the procedure. Risks were discussed including but not limited to: Bleeding, infection, possibility of epidural hematoma and subsequent neurological compromise, dural puncture, headaches, spinal cord and/or nerve damage, side effects of steroid medication, and poor results regarding pain control. Patient understands and wished to proceed. Patient will return to the clinic in approximate 2 weeks for follow- up, was counseled as to return appointment activity level and side effects to be aware of. Procedure is lumbar epidural steroid injection under local anesthetic using st erile prep and drape at the L5-S1 level using C-arm fluoroscopic guidance in both AP and lateral views medications injected is 120 mg Depo-Medrol +10mL preservative-free normal saline and 2 mL contrast- condition at discharge is stable patient tolerated procedure well had no complications. HENRI MACK MD Oct 31, 2020 12:50
--- NOTE | 2020-10-31 12:51 | PDOC4 ---
Procedure Note: ICD 10 Code: ICD 10 Code: M 54.17 M 51.26 M 51.37 Procedure Note: Patient was consented for lumbar epidural steroid injection. Risks were discussed including but not limited to: Bleeding, infection, possibility of epidural hematoma and subsequent neurological compromise, dural puncture, headaches, spinal cord and/or nerve damage, side effects of steroid medication, and poor results regarding pain control. Patient understands and wished to proceed. Procedure is lumbar epidural steroid injection under local anesthetic using sterile prep and drape at the L5-S1 level using C-arm fluoroscopic guidance in both AP and lateral views medications injected is 120 mg Depo-Medrol +10mL pr eservative-free normal saline and 2 mL contrast- condition at discharge is stable patient tolerated procedure well had no complications. HENRI MACK MD Oct 31, 2020 12:51
== END | disposition home or self-care (01) ==
LOC: PNCL 11:21
PROVIDERS: ATTEND Anesthesiology
DX: M54.5 Low back pain (principal); M79.604 Pain in right leg; M19.90 Unspecified osteoarthritis, unspecified site; M81.0 Age-related osteoporosis without current pathological fracture; I10 Essential (primary) hypertension; K21.9 Gastro-esophageal reflux disease without esophagitis; Z90.49 Acquired absence of other specified parts of digestive tract; Z90.710 Acquired absence of both cervix and uterus; Z98.890 Other specified postprocedural states; Z80.3 Family history of malignant neoplasm of breast; Z88.2 Allergy status to sulfonamides
CPT/HCPCS: 62323; J1030; J1040; Q9965

== ENCOUNTER → 2020-11-14 | Outpatient (CLI) | payer MEDICARE ==
--- NOTE | 2020-11-14 11:00 | PDOC4 ---
Procedure Note: ICD 10 Code: ICD 10 Code: M 54.16 M 54.17 M 51.26 Procedure Note: Patient was consented for lumbar epidural steroid injection with fluoroscopic guidance. Risks were discussed including but not limited to: Bleeding, infection, possibility of epidural hematoma and subsequent neurological compromise, dural puncture, headaches, spinal cord and/or nerve damage, side effects of steroid medication, and poor results regarding pain control. Patient understands and wished to proceed. Procedure is lumbar epidural steroid injection under local anesthetic using s terile prep and drape at the L5-S1 level using C-arm fluoroscopic guidance in both AP and lateral views medications injected is 120 mg Depo-Medrol +10mL preservative-free normal saline and 2 mL contrast- condition at discharge is stable patient tolerated procedure well had no complications. HENRI MACK MD Nov 14, 2020 11:00
--- NOTE | 2020-11-14 11:00 | PDOC ---
Progress Note - Pain Clinic Date of Service: DOS: DATE: 11/14/20 TIME: 10:57 Diagnosis: Dx: Lumbar radiculopathy with lumbar degenerative disease and lumbar herniated disc History or Present Illness: HPI: 70-year-old female returns for follow-up status post lumbar epidural steroid injection x1. Patient reports about 75% improvement in low back and right leg still some pain rating the right lower extremity however with walking standing patient reports the first week was doing very well after the next week it was starting to return but only mildly patient reports still in the low back right leg posterior gluteus posterior thigh posterior calf mostly in the back and the hip at this point patient reports is a form scale 10 is worse over the past week 3 on average 1 its least is a 3 today patient reports is aching sharp shooting radiating and worse with walking and standing better with sitting or laying down generally does not awaken her from sleep at night known motor or sensory deficits no bowel or bladder incontinence. Patient reports has been using a new medication which is an [id number] patch to help with the pain as well which she feels is helping but only to a very mild extent at this point. Physical Exam: VS: Blood pressure is 126/83 pulse 63 respirations 18 temperature 90.4 F height is 5 feet 2 inches weight is 172 pounds PE: PHYSICAL EXAMINATION: GENERAL: The patient is awake, alert, oriented, appropriate, very pleasant in demeanor. HEENT: Shows normocephalic, atraumatic. Extraocular movements are intact and symmetrical. Oral cavity: Mucous membranes moist and pink. NECK: Shows anterior throat supple without palpable lymphadenopathy noted. Swallow reflex symmetrical. CHEST: Shows normal on inspection. Breath sounds are clear bilaterally, distant but no rales or rhonchi. HEART: Shows S1, S2 clear. No murmurs auscultated. ABDOMEN: Soft, nontender, nondistended obese. No palpable organomegaly is noted. No rebound or guarding demonstrated. BACK: Shows spine grossly in the midline. Normal-appearing cervical lordotic curvature. There is increased thoracic kyphosis, some flattening of the lumbar lordotic curvature. Lumbar paraspinous muscles show symmetrical on inspection, on palpation shows some moderate tenderness diffusely throughout the upper, middle and lower distribution of the paraspinous muscles, but without specific trigger points, without radiation of pain. The patient has good rotational motion of the lumbar spine, both laterally as well as extension and flexion without significant difficulty. No tenderness over the spinous processes, sacrum or sacroiliac regions. EXTREMITIES: Lower extremities show deep tendon reflexes 2+ in the patellar and tendo calcaneus tendons. Motor exam is 4 on a scale of 5 with right dorsiflexion, extension, quadriceps and hamstring flexion and 5/5 on the left. Peripheral pulses are 1+ posterior tibial. No peripheral edema is noted bilaterally. Lower extremities are warm and dry. SKIN: Shows warm and dry, good turgor. No edema. No sores, rashes or bruising throughout. Procedure: Procedure: Options were discussed with patient. Patient's old chart was reviewed as her current medication regimen updated current review of systems updated today as well. We will proceed with a lumbar epidural steroid injection today as a second in the series with fluoroscopic guidance. Risks were discussed including but not limited to: Bleeding, infection, possibility of epidural hematoma and subsequent neurological compromise, dural puncture, headaches, spinal cord and/or nerve damage, side effects of steroid medication, and poor results regarding pain control. Patient understands and wished to proceed. Patient will return to the clinic in approximately 2 weeks for follow-up, was counseled as to return appointment activity level and side effects to be aware of. Medication Injected: Med Injected: Procedure is lumbar epidural steroid injection under local anesthetic using st erile prep and drape at the L5-S1 level using C-arm fluoroscopic guidance in both AP and lateral views medications injected is 120 mg Depo-Medrol +10mL preservative-free normal saline and 2 mL contrast- condition at discharge is stable patient tolerated procedure well had no complications. Condition at Discharge: Condition at Discharge: Condition at discharge stable, patient already the procedure well and had no complications. HENRI MACK MD Nov 14, 2020 11:00
== END ==
LOC: PNCL 10:13
PROVIDERS: ATTEND Anesthesiology
DX: M51.16 Intervertebral disc disorders with radiculopathy, lumbar region (principal); I10 Essential (primary) hypertension; K21.9 Gastro-esophageal reflux disease without esophagitis; Z90.710 Acquired absence of both cervix and uterus; Z98.890 Other specified postprocedural states
CPT/HCPCS: 62323; J1030; J1040; Q9965